=== PATIENT | male | born 1970 | race Caucasian/White ===

== ENCOUNTER → 2019-11-06 08:14 | Outpatient (BNVA) | payer OTHER, SELFPAY | PROVIDERS: Family Provider Nurse Practitioner Family; PCP Nurse Practitioner Family; Visit Provider Nurse Practitioner Family | DX: E78.5 Hyperlipidemia, unspecified (principal); I10 Essential (primary) hypertension | CPT/HCPCS: 80048; 80061 ==

== ENCOUNTER → 2021-09-08 09:55 | Outpatient (BNVA) | payer OTHER, SELFPAY | PROVIDERS: Family Provider Nurse Practitioner Family; PCP Nurse Practitioner Family; Visit Provider Nurse Practitioner Family | DX: I10 Essential (primary) hypertension (principal); E78.5 Hyperlipidemia, unspecified | CPT/HCPCS: 80053; 80061 ==

== ENCOUNTER → 2023-02-21 12:05 | Outpatient (BNVA) | payer OTHER, SELFPAY | PROVIDERS: Family Provider Nurse Practitioner Family; PCP Nurse Practitioner Family; Visit Provider Nurse Practitioner Family | DX: E78.5 Hyperlipidemia, unspecified (principal); I10 Essential (primary) hypertension | CPT/HCPCS: 80053; 80061 ==

== ENCOUNTER 2024-02-06 08:47 | Emergency (ER) | payer OTHER, SELFPAY ==
[2024-02-06 09:00] VITALS: BP 209/124; PULSE 65; RESP 17; TEMP 37.1; O2SAT 96; BMI 31.1
--- NOTE | 2024-02-06 09:00 | W.ED.BACK ---
HPI - Back Pain/Injury General: Stated Complaint: Fall, back pain Time Seen by Provider: 02/06/24 09:00 Related Data Previous Rx's Medication Instructions Recorded lisinopril 20 mg tablet See Rx Instructions .Route 10/21/23 .COMPLEX #90 tabs Allergies Allergy/AdvReac Type Severity Reaction Status Date / Time No Known Allergies Allergy Verified 03/22/23 08:44 [facility] ED PFSH: Medical History Hyperlipidemia HTN (hypertension) Social History Smoking and tobacco/nicotine status: current every day tobacco/nicotine user smokeless tobacco Quit status (tobacco/nicotine): has quit using Year quit tobacco: 03/25/2014 Alcohol intake: current Alcohol intake frequency: holidays/special occasions only Substance/Drug Use: never Marital status: Single Current gender identity: Male Discharge Plan Discharge Condition: Stable Prescriptions: No Action lisinopril 20 mg tablet See Rx Instructions .ROUTE .COMPLEX Qty: 90 0RF Dose Instruction: Take 1 tablet by mouth once daily Rx Instructions: Take 1 tablet by mouth once daily Referrals: Joanna Key FNP [Primary Care Provider] - Coding Level of Care Code ED Floral Designer for Giacomo Khalil
--- NOTE | 2024-02-06 09:07 | CT_ITS ---
WS: [id number] CT ABDOMEN PELVIS TECHNIQUE: Contrast-enhanced CT of the abdomen and pelvis with coronal and sagittal reformatted image s. CLINICAL INFORMATION: fall; L posterior pain COMPARISON: None. DLP: 1045.[address] scans at [facility] use at least one of these dose optimization techniques: automated e xposure control; mA and/or kV adjustment per patient size (includes targeted exams where dose is matc hed to clinical indication); or iterative reconstruction. FINDINGS: Obstructing LEFT distal ureteral calculus measuring 4.4 mm at the pelvic inlet. Moderate LEFT hydrone phrosis with surrounding inflammatory stranding and LEFT hydroureter. No hydronephrosis in the RIGHT kidney. Bilateral renal cysts. Mild diffuse fatty infiltration of the liver. Small esophageal hiatal hernia. Adrenal glands are normal. Sigmoid diverticulosis. Normal appendix. Few sigmoid diverticuli. Normal p ancreatic parenchymal enhancement. Normal portal vein and splenic vein. Celiac and SMA are patent. Fa t-containing umbilical hernia. CT/CT abdomen pelvis w con* [id number] IMPRESSION: 1. Obstructing LEFT distal ureteral calculus measuring 4.4 mm at the pelvic in let with moderate LEFT hydronephrosis. Associated inflammatory stranding and LE FT hydroureter 2. No other acute findings. Notified ARELI Junior at 02/06/2024 10:09 AM.
--- NOTE | 2024-02-06 09:09 | ED_ITS ---
HPI - Fall 2 General: Chief Complaint: Fall Stated Complaint: Fall, back pain Time Seen by Provider: 02/06/24 09:00 Source: patient Mode of arrival: ambulatory Limitations: no limitations History of Present Illness: Patient is a nice 53-year-old male who presents to ED today for evaluation following a fall. He states yesterday he accidentally fell from the tailgate of his pickup truck after tripping. Patient feels like he got the wind knocked out of me . He denies striking his head or LOC. He denies ever having immediate pain. He was able to get up and ambulate and finish his chores. He states this morning he woke up and had pain to the left posterior aspect of his back and hip. He states it feels internal . He has not noticed any external bruising or swelling. Pain does not seem to be exacerbated by movement. He has been ambulatory without difficulty or assistance. He states this morning, while driving, he had one episode of vomiting that he thought was abnormal. He has no chest pain or shortness of breath. No neck pain. MD complaint: fall Onset (ago): day(s) (yesterday) Fall from: from height (distance) Fall witnessed: no Place fall occurred: home Loss of consciousness: None Prolonged down time: no Symptoms prior to fall: none Context: tripped/slipped Location of injury: back Associated symptoms-after fall: Denies abdominal pain, chest pain, difficulty walking, headache(s), hematuria, lightheadedness or neck pain Related Data Home Medications Medication Instructions Recorded Confirmed lisinopril 20 mg tablet 20 mg PO QAM 02/06/24 02/06/24 Previous Rx's Medication Instructions Recorded hydrocodone 5 mg-acetaminophen 325 1 tab PO Q6H PRN pain #14 tabs 02/06/24 mg tablet ondansetron 4 mg disintegrating 4 mg PO Q8H PRN nausea and 02/06/24 tablet vomiting #14 tabs tamsulosin 0.4 mg capsule (Flomax) 0.4 mg PO DAILY #10 caps 02/06/24 Allergies Allergy/AdvReac Type Severity Reaction Status Date / Time No Known Allergies Allergy Verified 03/22/23 08:44 Review of Systems 2 Eyes: Denies: change in vision, blurry vision, photophobia, eye discharge, floaters or seeing flashes ENMT: Denies: throat pain, odynophagia, ear or mastoid pain, ear discharge, nasal discharge, epistaxis or sinus pain Card: Denies: chest pain, palpitations, lightheadedness, syncope or pre- syncope Resp: Denies: dyspnea or pain on inspiration GI: Denies: abdominal pain : Denies: flank pain or hematuria Musc: Reports: back pain; Denies: neck pain, extremity pain, extremity swelling, joint pain, joint swelling or joint redness Neuro: Denies: headache(s), numbness in extremities, weakness in extremities, sensory changes, difficulty walking or dizziness PFSH ED 2 PFSH: Medical History Hyperlipidemia HTN (hypertension) Social History Smoking and tobacco/nicotine status: current every day tobacco/nicotine user smokeless tobacco Quit status (tobacco/nicotine): has quit using Year quit tobacco: 03/25/2014 Alcohol intake: current Alcohol intake frequency: holidays/special occasions only Substance/Drug Use: never Marital status: Single Current gender identity: Male Physical Exam 2 Const: COMMON NORMALS: no acute distress, average body habitus, patient oriented x3, no limitations, healthy appearing, alert and well nourished G ENERAL APPEARANCE: cooperative ORIENTATION/CONSCIOUSNESS: Yes awake, Yes oriented to person, Yes oriented to place and Yes oriented to time HENMT: COMMON NORMALS: normocephalic, atraumatic and TM's normal bilaterally HEAD & SCALP: normal to inspection, normocephalic and atraumatic; no Velázquez's sign, no hematoma and no raccoon eyes FACE & SINUS: normal facial exam TYMPANIC MEMBRANE: TM's normal bilaterally MOUTH: other (no intraoral injuries noted) Eye: COMMON NORMALS: Equal, round and reactive pupils present and EOMs intact bilaterally GENERAL EYE: appearance normal, both eyes and all related structures and normal light reflex PUPIL: Yes Equal, round and reactive pupils present DIRECT OPHTHALMOSCOPY: Yes normal light reflex Neck/C-Spine: COMMON NORMALS: full ROM GENERAL: Yes normal visual inspection CERVICAL SPINE: Yes cervical ROM normal, No pain with cervical ROM, No Cervical spine tenderness, No step off deformity and No Paracervical muscle tenderness Chest: COMMONS NORMALS: normal inspection of the chest and normal palpation of entire chest wall Resp: COMMON NORMALS: normal respiratory effort and clear to auscultation bilaterally AUSCULTATION: clear to auscultation bilaterally Cardio: COMMON NORMALS: regular rate and regular rhythm RATE: regular rate RHYTHM: regular rhythm GI: COMMON NORMALS: Normal to inspection, nondistended, normoactive bowel sounds present, Soft to palpation, non-tender, No hepatosplenomegaly present and no masses INSPECTION: Yes normal to inspection and No abdominal wall ecchymosis AUSCULTATION: Yes normoactive bowel sounds PALPATION: Yes Soft to palpation and Yes No hepatosplenomegaly present Back/Pelvis: COMMON NORMALS: thoracic and lumbar spine normal to inspection, no thoracic nor lumbar tenderness and thoraco-lumbar ROM normal PELVIS: Yes buttocks normal and No sciatic notch tenderness SACRUM: no tenderness C OCCYX: no tenderness BACK IMAGE (MALE): 1. pain; not reproducible; no external signs of trauma Extremity: COMMON NORMALS: normal to inspection and full ROM GENERAL: Yes normal exam except as noted LEFT LOWER EXTREMITY: Yes hip joint (full painless ROM of L hip) Left hip: Yes neurovascular exam (normal) Neuro: GERONIMO COMA SCALE: document GCS findings Geronimo coma scale eye opening: Spontaneous Geronimo coma scale verbal response: Orientated [place] coma scale motor response: Obey commands Geronimo coma scale total score: 15 COMMON NORMALS: patient oriented x3, CN's II-XII intact bilaterally, moves all extremities, no focal motor deficits, no sensory deficits noted and gait normal SENSORIUM/ORIENTATION: Yes alert, Yes oriented to person, Yes oriented to place and Yes oriented to time SPEECH: speech normal GAIT: Yes Normal gait present Skin: COMMON NORMALS: no rashes or lesions noted GENERAL SKIN EXAM: no rashes or lesions noted TRAUMA: no lacerations or abrasions Course 2 Vital Signs: Vital signs: Vital Signs Temperature 98.7 F 02/06/24 09:00 Pulse Rate 65 02/06/24 09:00 Respiratory Rate 17 02/06/24 09:00 Blood Pressure 209/124 02/06/24 09:00 Pulse Oximetry 96 02/06/24 09:00 Oxygen Delivery Me thod Room Air 02/06/24 09:00 MDM - Fall Medical Decision Making CT scan showing no trauma related to his fall. He does have a 4.4 mm mid to distal ureter stone. Pain is controlled here. He does arrive to the ED today hypertensive stating he has not taken his morning lisinopril. Will have patient start straining his urine. Will give him pain/nausea meds as well as Flomax to go home with and have him follow-up with urology. Return to ED precautions given. Medical Records I reviewed the patient's medical records. Lab Data I reviewed the patient's lab results. 02/06/24 10:57 02/06/24 10:57 Radiology Impressions Abdomen/Pelvis CT 02/06/24 09:07 IMPRESSION: 1. Obstructing LEFT distal ureteral calculus measuring 4.4 mm at the pelvic inlet with moderate LEFT hydronephrosis. Associated inflammatory stranding and LEFT hydroureter 2. No other acute findings. Notified ARELI Junior at 02/06/2024 10:09 AM. Laboratory Results WBC 13.52 10^3/uL (3.29-11.43) H 02/06/24 10:57 RBC 4.55 10^6/uL (3.85-5.65) 02/06/24 10:57 Hgb 13.80 g/dL (11.27-16.99) 02/06/24 10:57 Hct 42.5 % (37-53) 02/06/24 10:57 MCV 93.4 fl (82-101) 02/06/24 10:57 MCH 30.3 pg (27-33) 02/06/24 10:57 MCHC 32.5 g/dL (30-55) 02/06/24 10:57 RDW 13.4 % (12.1-15.1) 02/06/24 10:57 Plt Count 258 10^3/cmm (157-399) 02/06/24 10:57 MPV 10.7 fL (7.4-10.4) H 02/06/24 10:57 Neut % (Auto) 90.4 % 02/06/24 10:57 Lymph % (Auto) 5.6 % 02/06/24 10:57 [place] % (Auto) 3.3 % 02/06/24 10:57 Eos % (Auto) 0.2 % 02/06/24 10:57 Baso % (Auto) 0.1 % 02/06/24 10:57 Neut # (Auto) 12.20 10^3/uL (1.8-7.7) H 02/06/24 10:57 Lymph # (Auto) 0.8 10^3/uL (0.8-4.8) 02/06/24 10:57 [place] # (Auto) 0.5 10^3/uL (0.2-0.9) 02/06/24 10:57 Eos # (Auto) 0.0 10^3/uL (0.0-0.8) 02/06/24 10:57 Baso # (Auto) 0.0 10^3/uL (0.0-0.1) 02/06/24 10:57 Nucleated RBC % (auto) 0 % 02/06/24 10:57 Nucleated RBCs # 0.0 /100WBC 02/06/24 10:57 Sodium 132 mmol/L (136-145) L 02/06/24 10:57 Potassium 4.6 mmol/L (3.5-5.1) 02/06/24 10:57 Chloride 96 mmol/L (98-107) L 02/06/24 10:57 Carbon Dioxide 25 mmol/L (22-29) 02/06/24 10:57 Anion Gap 15.6 (5-19) 02/06/24 10:57 BUN 11 mg/dL (6-20) 02/06/24 10:57 Creatinine 0.9 mg/dL (0.7-1.2) 02/06/24 10:57 GFR Calculation 87.6 mL/min (90-130) L 02/06/24 10:57 Glucose 118 mg/dL (65-115) H 02/06/24 10:57 Calculated Osmolality 274 mOsm/kg (285-295) L 02/06/24 10:57 Calcium 9.9 mg/dL (8.5-10.5) 02/06/24 10:57 Total Bilirubin 0.4 mg/dL (0.15-1.2) 02/06/24 10:57 AST 42 U/L (0-40) H 02/06/24 10:57 ALT 34 U/L (0-41) 02/06/24 10:57 Alkaline Phosphatase 81 U/L (40-130) 02/06/24 10:57 Total Protein 7.6 g/dL (6.6-8.7) 02/06/24 10:57 Albumin 4.4 g/dL (3.5-5.2) 02/06/24 10:57 Globulin 3.2 g/dL (1.3-4.6) 02/06/24 10:57 Urine Color Yellow (Yellow) 02/06/24 10:17 Urine Appearance Clear (CLEAR) 02/06/24 10:17 Urine pH 5.5 (5-7) 02/06/24 10:17 Ur Specific [place] 1.049 (1.005-1.030) H 02/06/24 10:17 Urine Protein Trace (Negative) A 02/06/24 10:17 Urine Glucose (UA) Negative (Normal) 02/06/24 10:17 Urine Ketones 1+ (Negative) H 02/06/24 10:17 Urine Blood 3+ (Negative) A 02/06/24 10:17 Urine Nitrate Negative (Negative) 02/06/24 10:17 Urine Bilirubin Negative (Negative) 02/06/24 10:17 Urine Urobilinogen 1.0 mg/dL (Negative) 02/06/24 10:17 Ur Leukocyte Esterase Negative (Negative) 02/06/24 10:17 Urine RBC 11-20 /hpf (0-2) H 02/06/24 10:17 Urine WBC 0-5 /hpf (0-5) 02/06/24 10:17 Ur Squamous Epith Cells 0-5 /hpf (0-5) 02/06/24 10:17 Amorphous Sediment Not Reportable 02/06/24 10:17 Urine Bacteria None seen /hpf (NONE) 02/06/24 10:17 Hyaline Casts 1.65 /lpf 02/06/24 10:17 All radiology interpretation(s) finalized by discharge Discharge Plan Discharge Patient Disposition: Home Clinical Impression: Calculus of left ureter Condition: Stable Prescriptions: New hydrocodone-acetaminophen 5-325 mg tablet 1 tab PO Q6H PRN (Reason: pain) Qty: 14 0RF tamsulosin [Flomax] 0.4 mg capsule 0.4 mg PO DAILY Qty: 10 0RF ondansetron 4 mg tablet,disintegrating 4 mg PO Q8H PRN (Reason: nausea and vomiting) Qty: 14 0RF No Action lisinopril 20 mg tablet 20 mg PO QAM Discharge Orders: Discharge ED (Routine); Ordered 02/06/24 Ordered By: Esme Smith Referrals: Joanna Key FNP [Primary Care Provider] - Patient Instructions: Kidney Stones (ED), How to Strain Your Urine (ED), Ureteral Stones (ED), Opioid Safety, Pain Management Activity Restrictions/Additional Instructions: As we discussed, your CT scan did not show any evidence of trauma from your recent fall however you were found to have a left ureter stone. Push fluids is much as possible in attempts to pass/flush stone out. Case management should contact you to help set you up with your follow-up urology appointment. You may begin straining your urine and collecting any stones that you passed and bring them to your follow up appointment. You need to return to the emergency department for severe or uncontrollable pain, inability to urinate, fevers, repetitive episodes of vomiting, generally feeling worse or unwell, or any other concerns you may have. I hope you begin to feel better soon. Coding Level of Care Code ED Distributor Publications for Giacomo Khalil
[2024-02-06] MEDS: iohexol 350 mg/mL 500 mL Btl (per mL) IV (09:33)
[2024-02-06] MEDS: lisinopril 20 mg Tablet PO (09:47)
[2024-02-06 10:51] LABS: Bilirubin Urine Negative (Negative); Blood Urine 3+ (Negative); Glucose Urine UA Negative (Normal); Ketones Urine 1+ (Negative); Leukocyte Esterase Urine Negative (Negative); Nitrate Urine Negative (Negative); Protein Urine Trace (Negative); Urine Appearance Clear (CLEAR); Urine Color Yellow (Yellow); pH Urine 5.5 (5-7)
[2024-02-06 10:54] LABS: Add Urine Microscopic? YES; Bacteria Urine None Seen /hpf; Hyaline Casts Urine 1.65 /lpf; Squamous Epithelial Cell Urine 0-5 /hpf (0-5); WBC Urine 0-5 /hpf (0-5)
[2024-02-06 11:07] LABS: Add Urine Culture? Yes; Specific Gravity, Urine 1.049 (1.005-1.030)
[2024-02-06 11:10] LABS: Basophils % 0.1 %; Eosinophils % 0.2 %; Hematocrit 42.5 % (37-53); Lymphocytes # 0.8 10^3/uL (0.8-4.8); Lymphocytes % 5.6 %; Mean Corpuscular HGB Conc 32.5 g/dL (30-55); Mean Corpuscular Hemoglobin 30.3 pg (27-33); Mean Corpuscular Volume 93.4 fl (82-101); Mean Platelet Volume 10.7 fL (7.4-10.4); Monocytes # 0.5 10^3/uL (0.2-0.9); Monocytes % 3.3 %; Neutrophils % 90.4 %; Nucleated Red Blood Cells % 0 %; Platelet Count 258 10^3/cmm (157-399); Red Blood Count 4.55 10^6/uL (3.85-5.65); Red Cell Distribution Width 13.4 % (12.1-15.1); White Blood Count 13.52 10^3/uL (3.29-11.43)
[2024-02-06 11:28] LABS: Alanine Aminotransferase 34 U/L (0-41); Albumin Level 4.4 g/dL (3.5-5.2); Alkaline Phosphatase 81 U/L (40-130); Anion Gap 15.6 (5-19); Aspartate Amino Transferase 42 U/L (0-40); Blood Urea Nitrogen 11 mg/dL (6-20); Calcium 9.9 mg/dL (8.5-10.5); Carbon Dioxide 25 mmol/L (22-29); Chloride 96 mmol/L (98-107); Globulin 3.2 g/dL (1.3-4.6); Glomerular Filtration Rate 87.6 mL/min (90-130); Glucose 118 mg/dL (65-115); Osmolality Calculated 274 mOsm/kg (285-295); Potassium 4.6 mmol/L (3.5-5.1); Sodium 132 mmol/L (136-145); Total Bilirubin 0.4 mg/dL (0.15-1.2); Total Protein 7.6 g/dL (6.6-8.7)
[2024-02-06 11:50] VITALS: BP 131/79; PULSE 64; O2SAT 97
--- NOTE | 2024-02-09 02:56 | DCPLANNER ---
Referral sent to [facility]
== END 2024-02-06 11:52 | disposition home or self-care (01) ==
PROVIDERS: Emergency Provider Physician Assistant; PCP Nurse Practitioner Family
DX: N20.1 Calculus of ureter (principal); F17.200 Nicotine dependence, unspecified, uncomplicated; I10 Essential (primary) hypertension; E78.5 Hyperlipidemia, unspecified
CPT/HCPCS: 36415; 74177; 80053; 81001; 85025; 87086; 99285

== ENCOUNTER → 2024-02-27 08:42 | Outpatient (BNVA) | payer OTHER, SELFPAY | PROVIDERS: PCP Nurse Practitioner Family; Visit Provider Nurse Practitioner Family | DX: I10 Essential (primary) hypertension (principal) | CPT/HCPCS: 80061 ==